=== PATIENT | female | born 1985 | race Hispanic/Latino ===

== ENCOUNTER 2017-08-06 13:42 | Emergency (ER) | payer OTHER ==
[2017-08-06] MEDS ORDERED: LIDOCAINE 1% MPF 2 ML AMPULE ONE (15:46)
--- NOTE | 2017-08-06 16:29 | EDPHYS ---
Physician Documentation [facility] Name: Nava García Age: 32 yrs Sex: Female : 1985 Arrival Date: 08/06/2017 Time: 13:48 Bed 11 Private MD: None, None ED Physician Eduardo Brunner HPI: 08/06 16:25 This 32 yrs old Female presents to ER via Ambulatory with complaints of Finger gs Laceration. 16:25 The patient or guardian reports a laceration, clean, 1.5 cm(s). The complaints affect gs the dorsal aspect of proximal phalanx of right little finger. Onset: The symptoms/episode began/occurred acutely, just prior to arrival. Modifying factors: The symptoms are alleviated by nothing, the symptoms are aggravated by nothing. Associated signs and symptoms: Pertinent negatives: numbness distally. Severity of symptoms: At their worst the symptoms were mild, in the emergency department the symptoms are unchanged. The patient has not experienced similar symptoms in the past. 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 - Social history:: Smoking status: Patient/guardian denies using tobacco. - Ebola Screening: : No symptoms or risks identified at this time. Exam: 16:25 Musculoskeletal/extremity: ROM: no acute changes, Circulation is intact in all gs extremities. Sensation intact. 16:25 Skin: injury, laceration(s), the wound is approximately 1.5 cm(s), with a depth of 0.25 cm(s), of the dorsal aspect of proximal phalanx of right little finger. Vital Signs: 13:53 BP 146 / 96; Pulse 91; Resp 16; Temp 98.1; Pulse Ox 100% on R/A; Weight 95.25 kg; hb Height 5 ft. 4 in. (162.56 cm); Pain 5/10; 16:15 BP 132 / 78; Pulse 84; Resp 16; Pulse Ox 100% on R/A; hb 13:53 Body Mass Index 36.05 (95.25 kg, 162.56 cm) hb Laceration: 16:25 Wound Repair of 1.5cm ( 0.6in ) subcutaneous laceration to dorsal aspect of proximal gs phalanx of right little finger. Distal neuro/vascular/tendon intact. Anesthesia: Local anesthetic administered with 2 mls of 1% lidocaine. Wound prep: Simple cleansing with betadine. Skin closed with 2 4-0 Prolene using simple sutures and sterile technique. Dressed with 4x4's. Patient tolerated well. MDM: 14:48 Patient medically screened. 16:25 Data reviewed: vital signs, nurses notes. Administered Medications: No medications were administered Disposition: 08/06/17 16:28 Discharged to Home. Impression: Laceration without foreign body of right hand. - Condition is Stable. - Discharge Instructions: Laceration Care, Adult. - Work release form, Family Work Release, Medication Reconciliation Form, Thank You Letter, Antibiotic Education, Prescription Opioid Use form. - Follow up: Emergency Department; When: 7 - 10 days; Reason: Staple/Suture removal. Signatures: Kori Ledesma RN RN Eduardo Brunner MD MD Corrections: (The following items were deleted from the chart) 16:55 16:28 08/06/2017 16:28 Discharged to Home. Impression: Laceration without foreign body hb of right hand. Condition is Stable. Forms are Medication Reconciliation Form, Thank You Letter, Antibiotic Education, Prescription Opioid Use. Follow up: Emergency Department; When: 7 - 10 days; Reason: Staple/Suture removal.
--- NOTE | 2017-08-06 16:29 | ER ---
Nurse's Notes [facility] Name: Nava García Age: 32 yrs Sex: Female : 1985 Arrival Date: 08/06/2017 Time: 13:48 Bed 11 Private MD: None, None Diagnosis: Laceration without foreign body of right hand Presentation: 08/06 13:51 Presenting complaint: Patient states: I cut my right little finger on glass while hb washing dishes 1 hour ago. Transition of care: patient was not received from another setting of care. Onset of symptoms was August 06, 2017. Care prior to arrival: None. 13:51 Method Of Arrival: Ambulatory hb 13:51 Acuity: IOANA 4 hb 13:55 Risk Assessment: Do you want to hurt yourself or someone else? Patient reports no hb desire to harm self or others. Initial Sepsis Screen: Does the patient meet any 2 criteria? No. Patient's initial sepsis screen is negative. Does the patient have a suspected source of infection? No. Patient's initial sepsis screen is negative. 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 - Social history:: Smoking status: Patient/guardian denies using tobacco. - Ebola Screening: : No symptoms or risks identified at this time. Screenin:15 Abuse screen: Denies threats or abuse. Denies injuries from another. Nutritional hb screening: No deficits noted. Tuberculosis screening: No symptoms or risk factors identified. Fall Risk None identified. Assessment: 14:20 General: Appears in no apparent distress. Behavior is calm, cooperative. Pain: Pain hb currently is 5 out of 10 on a pain scale. Neuro: Level of Consciousness is awake, alert, obeys commands, Oriented to person, place, time, situation. Cardiovascular: Capillary refill < 3 seconds Patient's skin is warm and dry. Respiratory: Airway is patent Respiratory effort is even, unlabored, Respiratory pattern is regular, symmetrical. GI: No signs and/or symptoms were reported involving the gastrointestinal system. : No signs and/or symptoms were reported regarding the genitourinary system. EENT: No signs and/or symptoms were reported regarding the EENT system. Derm: Skin is intact, is healthy with good turgor, Skin is pink, warm \T\ dry. Musculoskeletal: No signs and/or symptoms reported regarding the musculoskeletal system. Injury Description: Laceration sustained to dorsal aspect of proximal phalanx of right little finger is clean, 0.5 to 2.5 cm long, not bleeding. 15:00 Reassessment: Patient appears in no apparent distress at this time. No changes from hb previously documented assessment. Patient and/or family updated on plan of care and expected duration. Pain level reassessed. Patient is alert, oriented x 3, equal unlabored respirations, skin warm/dry/pink. 16:00 Reassessment: Patient appears in no apparent distress at this time. No changes from hb previously documented assessment. Patient and/or family updated on plan of care and expected duration. Pain level reassessed. Patient is alert, oriented x 3, equal unlabored respirations, skin warm/dry/pink. Vital Signs: 13:53 BP 146 / 96; Pulse 91; Resp 16; Temp 98.1; Pulse Ox 100% on R/A; Weight 95.25 kg; hb Height 5 ft. 4 in. (162.56 cm); Pain 5/10; 16:15 BP 132 / 78; Pulse 84; Resp 16; Pulse Ox 100% on R/A; hb 13:53 Body Mass Index 36.05 (95.25 kg, 162.56 cm) hb ED Course: 13:48 Patient arrived in ED. mr 13:48 None, None is Private Physician. mr 13:52 Triage completed. hb 13:53 Arm band placed on right wrist. hb 14:15 Patient has correct armband on for positive identification. Call light in reach. hb 14:32 Eduardo Brunner MD is Attending Physician. gs 16:51 Kori Ledesma RN is Primary Nurse. hb 16:54 No provider procedures requiring assistance completed. Patient did not have IV access hb during this emergency room visit. Administered Medications: No medications were administered Outcome: 16:28 Discharge ordered by . gs 16:54 Discharged to home ambulatory, with significant other. hb 16:54 Condition: stable 16:54 Discharge instructions given to patient, Instructed on discharge instructions, follow up and referral plans. medication usage, wound care, Demonstrated understanding of instructions, follow-up care, medications, wound care. 16:55 Patient left the ED. hb Signatures: Trena De La Rosa Heather, RN RN hb Starr, Gregory, MD MD
== END 2017-08-06 16:55 | disposition home or self-care (01) ==
LOC: ER 13:42
PROC: 0JQJ0ZZ Repair Right Hand Subcutaneous Tissue and Fascia, Open Approach (ICD-10-PCS; principal; 2017-08-06)
DX: S61.216A Laceration without foreign body of right little finger without damage to nail, initial encounter (principal); W25.XXXA Contact with sharp glass, initial encounter; Y93.G1 Activity, food preparation and clean up; Y92.9 Unspecified place or not applicable
CPT/HCPCS: 99281; J2001